=== PATIENT | female | born 1935 | race Caucasian/White ===

== ENCOUNTER 2018-09-20 09:49 | Day surgery (SDC) | payer BC ==
[~2018-09-20] VITALS: Ht 152.4 cm; Wt 63.1 kg
[2018-09-20] MEDS ORDERED: PROPOFOL 20 ML ONE (10:46)
[2018-09-20] MEDS ORDERED: NAMENDA (10:51)
--- NOTE | 2018-09-20 10:54 | PREAC ---
Date/Time of Note Date/Time of Note DATE: 09/20/18 TIME: 10:52 Anesthesia Eval and Record Evaluation Time Pre-Procedure Interview DATE: 09/20/18 TIME: 10:52 Age 83 Sex female NPO: 8 hrs Preoperative diagnosis diarrhea Planned procedure EGD and Colonoscopy Past Medical History Past Medical History: Includes Neuro: Other (Dementia, AAO to name only, ) Surgery & Anesthesia Issues No known issue Meds Anticoagulation: No Beta Ashlee within 24 hr: No Reason Beta Ashlee not given: Pt. not on B-Ashlee Reported Medications [Namenda] No Conflict Check 09/20/18 Meds reviewed: Yes (NAMENDA ONLY) Allergies Coded Allergies: No Known Allergy (Unverified , 09/20/18) Allergies Reviewed: Yes Labs/Studies Labs Reviewed: Reviewed by anesthesiologist test: N/A Studies: ECG, CXR Pre-procedure Exam Airway: Adequate mouth opening, Adequate thyromental dist Mallampati: Mallampati II Teeth: Normal Lung: Normal Heart: Normal ASA Physical Status ASA physical status: 2 Emergency: None Planned Anesthetic General/MAC: MAC Planned Pain Management Parenteral pain med Pre-operative Attestations Prior to commencing anesthesia and surgery, the patient was re-evaluated, there was verification of: *The patient's identity *The results of appropriate recent lab work and preoperative vital signs *The above evaluation not changing prior to induction *Anesthetic plan, risk benefits, alternative and complications discussed with patient/family; questions answered; patient/family understands, accepts and wishes to proceed. GIANNA LABOY Sep 20, 2018 10:54
[2018-09-20 11:02] VITALS: Ht 152.4 cm; Wt 63.1 kg
[2018-09-20 11:03] VITALS: BP 130/60; PULSE 75; RESP 15
[2018-09-20 11:55] VITALS: BP 118/56; PULSE 68; RESP 16
[2018-09-20 12:10] VITALS: BP 124/59; PULSE 70; RESP 18
--- NOTE | 2018-09-20 14:29 | PAC ---
Date/Time of Note Date/Time of Note DATE: 09/20/18 TIME: 14:29 Post-Anesthesia Notes Post-Anesthesia Note Last documented vital signs Vital Signs Date Temp Pulse Resp B/P (MAP) Pulse Ox O2 O2 Flow FiO2 Time Delivery Rate 09/20/18 98.2 70 18 124/59 97 Room Air 12:10 (80) Activity: WNL Respiratory function: WNL Cardiovascular function: WNL Mental status: Baseline Pain reasonably controlled: Yes Hydration appropriate: Yes Nausea/Vomiting absent: Yes GIANNA LABOY Sep 20, 2018 14:29
== END 2018-09-20 12:31 | disposition home or self-care (01) ==
LOC: GIL 09:49
PROVIDERS: ATTEND Internal Medicine Gastroenterology
DX: Z12.11 Encounter for screening for malignant neoplasm of colon (principal); K29.50 Unspecified chronic gastritis without bleeding; K57.30 Diverticulosis of large intestine without perforation or abscess without bleeding
CPT/HCPCS: 43239; 45378; 88305; 88312; Z7610